=== PATIENT | male | born 1965 | race Caucasian/White ===

== ENCOUNTER 2017-12-17 02:18 | Outpatient (CLI) | payer MEDICAID, SELFPAY ==
[2017-12-17 11:08] LABS: Anion Gap 9.5 mmol/L (3-11); BUN 12 mg/dL (7-18); CO2 31.5 mmol/L (21.0-32.0); CREATININE 1.03 mg/dL (0.70-1.30); Calcium 9.2 mg/dL (8.5-10.1); Chloride 99 mmol/L (98-107); Glucose 183 mg/dL (70-100); Potassium 3.7 mmol/L (3.5-5.1); Sodium 140 mmol/L (136-145)
== END 2017-12-17 02:38 ==
PROVIDERS: PCP Family Medicine; Visit Provider Family Medicine
DX: I10 Essential (primary) hypertension (principal)
CPT/HCPCS: 36415; 80048

== ENCOUNTER 2018-12-14 02:23 | Outpatient (CLI) | payer MEDICAID, SELFPAY ==
[2018-12-14 12:48] LABS: Anion Gap 10.1 mmol/L (3-11); BUN 13 mg/dL (7-18); CO2 28.9 mmol/L (21.0-32.0); CREATININE 1.08 mg/dL (0.70-1.30); Calcium 9.2 mg/dL (8.5-10.1); Chloride 99 mmol/L (98-107); Glucose 118 mg/dL (70-100); Potassium 3.7 mmol/L (3.5-5.1); Sodium 138 mmol/L (136-145)
== END 2018-12-14 02:43 ==
PROVIDERS: PCP Family Medicine; Visit Provider Family Medicine
DX: I10 Essential (primary) hypertension (principal)
CPT/HCPCS: 36415; 80048

== ENCOUNTER 2020-01-30 02:12 | Outpatient (CLI) | payer MEDICAID, SELFPAY ==
[2020-01-30 12:50] LABS: Calculated LDL 204 mg/dL (<100); Cholesterol 305 mg/dL (<200); HDL Cholesterol 42 mg/dL (40-60); Potassium 4.4 mmol/L (3.5-5.1); Triglyceride 295 mg/dL (<150)
== END 2020-01-30 02:32 ==
PROVIDERS: PCP Nurse Practitioner; Visit Provider Nurse Practitioner
DX: E78.5 Hyperlipidemia, unspecified (principal); I10 Essential (primary) hypertension
CPT/HCPCS: 36415; 80061; 82565; 84132

== ENCOUNTER 2020-07-02 04:01 | Outpatient (CLI) | payer MEDICAID, SELFPAY ==
[2020-07-02 13:23] LABS: Calculated LDL 81 mg/dL (<100); Cholesterol 182 mg/dL (<200); HDL Cholesterol 57 mg/dL (40-60); Triglyceride 224 mg/dL (<150)
== END 2020-07-02 04:02 | disposition home or self-care (01) ==
LOC: LOS 04:01
PROVIDERS: PCP Nurse Practitioner; Visit Provider Nurse Practitioner
DX: E78.5 Hyperlipidemia, unspecified (principal)
CPT/HCPCS: 36415; 80061

== ENCOUNTER 2021-01-29 10:53 | Outpatient (CLI) | payer MEDICAID, SELFPAY ==
[2021-01-29 13:26] LABS: Cholesterol 267 mg/dL (<200); Triglyceride 309 mg/dL (<150)
[2021-01-29 13:27] LABS: Calculated LDL 154 mg/dL (<100); HDL Cholesterol 52 mg/dL (40-60); Potassium 4.1 mmol/L (3.5-5.1)
== END 2021-01-29 10:54 | disposition home or self-care (01) ==
LOC: LOS 10:53
PROVIDERS: PCP Nurse Practitioner; Visit Provider Nurse Practitioner
DX: I10 Essential (primary) hypertension (principal); E78.5 Hyperlipidemia, unspecified
CPT/HCPCS: 36415; 80061; 82565; 84132

== ENCOUNTER 2021-06-11 20:36 | Inpatient (IN) | payer MEDICAID, SELFPAY ==
[2021-06-11] VITALS (52 sets, daily range): BP systolic 68–178; BP diastolic 47–145; PULSE 84–124; RESP 8–22; TEMP 36.7; O2SAT 73–100
--- NOTE | 2021-06-11 20:20 | W.ED.GENAD ---
Discharge Plan Disposition Patient Disposition: [facility] INPATIENT Condition: Good Discharge Details Clinical Impression: Acute respiratory failure, Overdose, Altered mental status, Acute respiratory acidosis Admit Date/Time: 06/11/21 23:26 Admit Provider: Roe Zhou Attending Provider: Roe Zhou Primary Care Provider: Selma Zimmerman ED Provider: Liliana Arora Discharge Data Discharge Date/Time-TO BE ENTERED AT DEPARTURE: 06/12/21 00:36 Medical Decision Making 2024 -- 55-year-old male with a history of schizophrenia, anxiety, depression, hyperlipidemia, history of narcotic abuse presented per EMS for a suspected overdose. EMS reported that patient was noted to have oxygen saturation 30s on room air on scene and was given 2 doses of 0.5 Narcan intranasal and then became combative. Patient reported to punch, kick and bite EMS staff. EMS called med control for orders to give ketamine but we declined this be given due to concern for polymedication and potential for respiratory depression with unknown ingestion of substance. EMS involved [facility] on scene for safety and control or patient in the ambulance. Patient arrived to the ED being restrained by multiple EMS staff and [facility]. Patient placed in four-point soft restraints by staff including ENT and VSP due to continued risk of injury to himself and staff. Patient able to answer questions but is drowsy and combative. His blood pressure is hypertensive. Heart rate 120s. Oxygen saturation high 80s to low 90s on nonrebreather. Patient attempted to pull and rip off multiple nonrebreather's. Patient given 2 mg Ativan IM. Patient continued to be combative and pulling at lines and IV and attempting to bite staff while in 4 point restraints. 2200 -- Patient noted to have an ET CO2 50s-70s and bradypneic at times -- he was given multiple doses of 0.4 Narcan IV which he responded to as well. Patient would then ask for a roast beef sandwich and repeatedly states leave me alone, I want to sleep and I want to leave. He is drowsy but arousable and oriented x3. Patient then became more cooperative and no longer pulling at lines or mask and four-point restraints removed. Discussion with his girlfriend Raya over the phone states that he told her approximately 1 hour prior to arrival that he snorted something from a friend. She also reports he drank 3-4 beers. Girlfriend states she does not think she uses street drugs regularly. 2300 -- Suspect that this is an opiate overdose as he does respond immediately to Narcan. ABG notes a pH of 7.18, PCO2 of 65, PO2 of 127, bicarb of 22. Patient placed on BiPAP which he is tolerating well. He wakes up at times and asks for a roast beef sandwich and then becomes somnolent and bradypneic. His heart rate is 99, O2 sat 97 on 10/5 of BiPAP, end-tidal 40. Will admit for continued monitoring for suspected fentanyl overdose and likely plan for Narcan infusion. Case discussed with Dr. Zhou who accepts patient for admission to the ICU. Recommends a Narcan drip. 0 --patient remaining on BiPAP and tolerating this well. Heart rate 80s. Oxygen saturation mid 90s on BiPAP. He does respond when spoken to and gives a thumbs up. Labs reviewed. White blood cell count 21. Troponin negative. Alcohol level 96.5. Salicylate 3.1. Acetaminophen less than 2. Chest x-ray obtained and there are patchy infiltrates. Consider aspiration. Discussed with hospitalist -- will order a dose of Rocephin and Flagyl. Procalcitonin, lactate and blood cultures ordered. EKG not obtained here in the ED -- heart rate improved from 120s on arrival down to 80s prior to transfer to the ICU and appeared normal sinus on the monitor while here in the ED. Review of bedside cardiac US with Dr. Zhou noted normal wall motion and dynamics and no evidence of pericardial effusion. Medical Records Medical records reviewed: Yes I reviewed the patient's medical records. Imaging Data Radiologic Study: Radiologist's impression: XR Chest Exam date and time: 06/11/2021 22:17 Age: 55 years old Clinical indication: Patient HX: Hypoxia, R/O acute disease TECHNIQUE: Imaging protocol: XR of the chest. Views: 1 view. COMPARISON: MRI - L UPPER JOINT WO CONT 12/19/2016 16:22 FINDINGS: Lungs: Very low lung volumes with patchy interstitial opacities and superimposed linear densities mostly in the lung bases. Pleural spaces: No pleural effusion. No pneumothorax. Heart/Mediastinum: No cardiomegaly. Bones/joints: No acute fracture.? IMPRESSION: Low volume study with predominantly subsegmental atelectasis suspected in the lung bases.? Atypical infection is difficult to exclude however. Lab Data Lab results reviewed: Yes I reviewed the patient's lab results. Labs: 06/11/21 00:23 Blood Blood Culture - Pending 06/11/21 00:00 Blood Blood Culture - Pending Laboratory Tests Range/Units 06/11/21 06/11/21 06/11/21 20:50 20:50 20:50 WBC (4.4-10.8) 10^3/uL 21.35 H RBC (4.36-5.78) 10^6/uL 5.16 Hgb (13.5-17.5) g/dL 15.7 Hct (40.0-50.0) % 48.1 MCV (80-95) fL 93.2 MCH (27.0-33.0) pg 30.4 MCHC (32.0-36.0) % 32.6 RDW (11.8-14.1) % 13.0 Plt Count (130-400) 10^3/uL 387 MPV (8.0-11.0) fL 9.0 Immature Gran % 0.0 Neutrophils % 70.0 Lymphocytes % 24.0 Atypical Lymphs % 3 Monocytes % 2.0 Eosinophils % 1.0 Basophils % 0.0 Nucleated RBC % % 0 Absolute Neutrophils (1.2-6.7) 10^3/uL 14.95 H Absolute Lymphocytes (1.2-3.4) 10^3/uL 5.76 H Absolute Monocytes (0.1-0.8) 10^3/uL 0.43 Absolute Eosinophils (0.0-0.7) 10^3/uL 0.21 Absolute Basophils (0.0-0.2) 10^3/uL 0.00 RBC Morphology Normal ABG Sample Site ABG pH (7.35-7.45) ABG pCO2 (35-45) mmHg ABG pO2 (80-105) mmHg ABG HCO3 (22-26) mmol/L ABG Total CO2 (23-27) mmol/L ABG O2 Saturation (95-98) % ABG Base Excess (-2-3) mmol/L FiO2 % Sodium (136-145) mmol/L 138 Potassium (3.5-5.1) mmol/L 3.5 Chloride (98-107) mmol/L 97 L Carbon Dioxide (21.0-32.0) mmol/L 26.3 Anion Gap (3-11) mmol/L 14.7 H BUN (7-18) mg/dL 14 Creatinine (0.70-1.30) mg/dL 1.4 H Estimated GFR/1.73 m2 (mL/min/1.73m2) 52.81 Glucose (74-106) mg/dL 299 H Calcium (8.5-10.1) mg/dL 8.9 Magnesium (1.8-2.4) mg/dL 2.0 Total Bilirubin (0.2-1.0) mg/dL 0.2 AST (15-37) U/L 43 H ALT (16-63) U/L 55 Alkaline Phosphatase (46-116) U/L 62 Troponin I (<or=60) ng/L < 50 Total Protein (6.4-8.2) g/dL 8.0 Albumin (3.4-5.0) g/dL 4.0 Lipase (73-393) U/L 126 Salicylates (<2.8) mg/dL 3.1 Acetaminophen (10-30) ug/mL < 2 Ethyl Alcohol (<10) mg/dL 96.5 H Range/Units 06/11/21 20:51 WBC (4.4-10.8) 10^3/uL RBC (4.36-5.78) 10^6/uL Hgb (13.5-17.5) g/dL Hct (40.0-50.0) % MCV (80-95) fL MCH (27.0-33.0) pg MCHC (32.0-36.0) % RDW (11.8-14.1) % Plt Count (130-400) 10^3/uL MPV (8.0-11.0) fL Immature Gran % Neutrophils % Lymphocytes % Atypical Lymphs % Monocytes % Eosinophils % Basophils % Nucleated RBC % % Absolute Neutrophils (1.2-6.7) 10^3/uL Absolute Lymphocytes (1.2-3.4) 10^3/uL Absolute Monocytes (0.1-0.8) 10^3/uL Absolute Eosinophils (0.0-0.7) 10^3/uL Absolute Basophils (0.0-0.2) 10^3/uL RBC Morphology ABG Sample Site Right Radial ABG pH (7.35-7.45) 7.18 L* ABG pCO2 (35-45) mmHg 65 H* ABG pO2 (80-105) mmHg 127 H ABG HCO3 (22-26) mmol/L 24 ABG Total CO2 (23-27) mmol/L 22 L ABG O2 Saturation (95-98) % 98 ABG Base Excess (-2-3) mmol/L -4 L FiO2 % 100 Sodium (136-145) mmol/L Potassium (3.5-5.1) mmol/L Chloride (98-107) mmol/L Carbon Dioxide (21.0-32.0) mmol/L Anion Gap (3-11) mmol/L BUN (7-18) mg/dL Creatinine (0.70-1.30) mg/dL Estimated GFR/1.73 m2 (mL/min/1.73m2) Glucose (74-106) mg/dL Calcium (8.5-10.1) mg/dL Magnesium (1.8-2.4) mg/dL Total Bilirubin (0.2-1.0) mg/dL AST (15-37) U/L ALT (16-63) U/L Alkaline Phosphatase (46-116) U/L Troponin I (<or=60) ng/L Total Protein (6.4-8.2) g/dL Albumin (3.4-5.0) g/dL Lipase (73-393) U/L Salicylates (<2.8) mg/dL Acetaminophen (10-30) ug/mL Ethyl Alcohol (<10) mg/dL HPI General Date/Time Provider Initiated Documentation: 06/11/21 20:46. Limitations to Documentation: no limitations. Information obtained by: patient. HPI Narrative: Patient is a 55-year-old male with a history of schizophrenia, anxiety, depression, narcotic drug abuse who presents per EMS initially as a overdose, given Narcan and now combative. EMS reported that they called [facility] for involvement. EMS had called the ED requesting ketamine for combative patient but this was declined per med control for concern for respiratory depression in the setting of overdose post narcan. EMS reported that patient attempt to punch, kick and bite staff in the involved [facility].. Patient arrived to the ED with multiple EMT staff and [facility] holding him to be EMS stretcher. Patient's girlfriend Raya called to state that patient told her 1 hour prior to arrival that he snorted something he got from a friend . She also reported that he drank 3-4 beers. She states he does take his regular medications including clonazepam as prescribed and denies any known ingestion of additional doses or an overdose of his regular medications. She is not aware of him regularly abusing street drugs or prescription opiates. Review of records note that patient was seen last week at his PCP office and there was mention of a controlled substance contract. Pt is able to answer some questions and denies snorting or injecting any drugs. Related Data Home Medications Medication Instructions Recorded Confirmed calcium carbonate 300 mg (750 mg) 302 tab PO PRN PRN 05/14/17 06/04/21 chewable tablet (Tums E-X) amlodipine 5 mg tablet 5 mg PO DAILY #90 tab 01/29/21 06/04/21 atorvastatin 20 mg tablet 20 mg PO QPM #90 tab 01/29/21 06/04/21 chlorthalidone 25 mg tablet 25 mg PO DAILY #90 tab-cap 01/29/21 06/04/21 diphenhydramine HCl 25 mg capsule 50 mg PO QHS cap 01/29/21 06/04/21 (NightTime Sleep Aid (diphenhydramine)) lisinopril 40 mg tablet 40 mg PO DAILY #90 tab 01/29/21 06/04/21 sertraline 50 mg tablet 50 mg PO DAILY #90 tab 01/29/21 06/04/21 clonazepam 1 mg tablet See Rx Instructions PO .COMPLEX 05/24/21 06/04/21 #30 tab blood sugar diagnostic (FreeStyle #50 ea 06/12/21 Test) blood-glucose meter (FreeStyle #1 ea 06/12/21 System Kit) lancets 28 gauge #100 ea 06/12/21 levofloxacin 750 mg tablet 750 mg PO HS #4 tab 06/12/21 metformin 500 mg tablet 500 mg PO DAILY #30 tab 06/12/21 nicotine 21 mg/24 hr daily 21 mg TRANSDERMAL DAILY PRN PRN 06/12/21 transdermal patch #28 ea Previous Rx's Medication Instructions Recorded amlodipine 5 mg tablet 5 mg PO DAILY #90 tab 01/29/21 atorvastatin 20 mg tablet 20 mg PO QPM #90 tab 01/29/21 chlorthalidone 25 mg tablet 25 mg PO DAILY #90 tab-cap 01/29/21 lisinopril 40 mg tablet 40 mg PO DAILY #90 tab 01/29/21 sertraline 50 mg tablet 50 mg PO DAILY #90 tab 01/29/21 clonazepam 1 mg tablet See Rx Instructions PO .COMPLEX 05/24/21 #30 tab blood sugar diagnostic (FreeStyle #50 ea 06/12/21 Test) blood-glucose meter (FreeStyle #1 ea 06/12/21 System Kit) lancets 28 gauge #100 ea 06/12/21 levofloxacin 750 mg tablet 750 mg PO HS #4 tab 06/12/21 metformin 500 mg tablet 500 mg PO DAILY #30 tab 06/12/21 nicotine 21 mg/24 hr daily 21 mg TRANSDERMAL DAILY PRN PRN 06/12/21 transdermal patch #28 ea Allergies Allergy/AdvReac Type Severity Reaction Status Date / Time Penicillins Allergy Unknown As a child Unverified 06/04/21 14:38 General Stated Complaint: OD/Poison SARAH: 2 Review of Systems Unobtainable due to mental status Constitutional Constitutional: Denies chills, Denies excessive sweating, Denies fatigue, Denies fever(s), Denies weakness and Denies weight loss Eyes Eyes: Reports system reviewed and no additional complaints, except as documented and Denies blurry vision ENT Ears, Nose, Mouth, and Throat: Denies vertigo, Denies dizziness, Denies otalgia, Denies nasal congestion, Denies sore throat and Denies throat swelling Cardiovascular Cardiovascular: Denies chest pain, Denies syncope, Denies rapid heart rate and Denies dyspnea Respiratory Respiratory: Denies chest congestion, Denies cough, Denies pain on inspiration and Denies dyspnea Gastrointestinal Gastrointestinal: Denies abdominal pain, Denies diarrhea and Denies vomiting Genitourinary Genitourinary: Denies hematuria, Denies dysuria and Denies flank pain Musculoskeletal Musculoskeletal: Denies back pain and Denies joint swelling Integumentary/Breasts Skin/Breast: Denies lesions and Denies rash Neurologic Neurologic: Denies behavioral changes, Denies confusion, Denies vertigo, Denies dizziness, Denies syncope, Denies localized weakness and Denies weakness Psychiatric Psychiatric: Denies behavioral changes, Denies confusion and Denies depression Endocrine Endocrine: Denies excessive sweating and Denies fatigue Hematologic/Lymphatic Hematologic/Lymphatic: Denies easy bruising and Denies lymphadenopathy Allergic/Immunologic Allergic/Immunologic: Denies throat swelling PFSH All Active Problems (Updated 06/13/21 @ 00:05 by AMERICO ENGEL) Newly diagnosed diabetes (Acute) Aspiration pneumonia (Acute) Smoker (Chronic) 1 PPD on & off > 30 years Primary osteoarthritis of right shoulder (Chronic 11/22/15) Surg with Dr. 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 Brother Essential hypertension Son No problems noted. Son No problems noted. Social History Smoking/Tobacco Use Status: Current every day Tobacco Type: cigarettes Quit status: has quit before Second Hand Exposure: Yes Smoking risk assessment performed?: Yes Alcohol Intake: current Alcohol Intake frequency: a few times a month Drug use: Never Substance use type: does not use Caregiver/Support person: No Household members: significant other Housing: apartment Communication Needs: None Do you need help understanding health information?: Rarely current occupation: [employer] Pets and animals: No Sexually active: Yes Do you think of yourself as: straight/heterosexual Current gender identity: male What is your relationship status?: living with partner How often do you talk on the phone with friends or family?: twice per week How often do you get together with friends or relatives?: twice per week Do you belong to any clubs or organized social groups?: no Panel score (0-1 are the most socially isolated patients): 2 What type of physical activity do you participate in: bicycling Duration: < 15 minutes/day Frequency: 1-2 times per week Kimberly/Synagogue: No preference Special kimberly needs: No Seatbelt use: sometimes Helmet use: Yes Helmet use: sometimes Drive intox or ride w/intox professional driver: No Do you feel safe in your relationship?: Yes Exam Const General: disheveled (combative and thrashing around stretcher. ) HENMT Head: normal to inspection Ears: hearing grossly normal bilaterally and external ears normal General nose exam: external nose normal Face and sinus: normal facial exam Mouth: oral mucosae normal and tongue normal Teeth and gingiva: poor dentition Eyes General: appearance normal, both eyes and all related structures Eyelids: eyelids normal Pupils: pinpoint bilaterally EOM: EOM intact bilaterally Neck Neck: normal visual inspection Lymphatic: no lymphadenopathy noted Chest Chest: normal inspection of the chest Resp Effort & Inspection: normal respiratory effort and able to speak in complete sentences Auscultation: clear to auscultation bilaterally Cardio Rate: regular rate Rhythm: regular rhythm GI Inspection: normal to inspection Palpation: soft, not firm, no guarding, no hepatosplenomegaly, no masses and nontender Auscultation: hypoactive bowel sounds Male General Exam: Yes normal external exam Back/Spine/Pelvis Thoracic/Lumbar Spine: thoracic and lumbar spine normal to inspection Skin General skin exam: no rashes or lesions noted Neuro General: moves all extremities, no meningeal signs, no focal motor deficits and other (drowsy but arousable to voice and sternal rub at times) Cognition: normal cognition Speech: speech normal Motor: muscle tone normal throughout Sensory Exam: no sensory deficits noted Extrem General: normal to inspection and full ROM Psych Appearance: grossly normal Mental Status: mental status grossly normal Speech and Movement: speech and movement normal Affect: normal affect Thought Process: normal Critical Care Time Critical Care Time Critical Care Time: Yes Total Critical Care Time: 90 Attestation: I spent 90 minutes of critical care time with this patient. This does not include time spent on separately reported billable procedures.
[2021-06-11] MEDS: LORazepam 2 MG/ML VIAL IM (20:37)
[2021-06-11] MEDS: Haloperidol 5 MG/ML VIAL IM (20:50)
[2021-06-11] MEDS: Naloxone 0.4 MG/ML VIAL ×4 (20:50→21:32)
[2021-06-11] MEDS: Normal Saline 1,000 ML 1000 ML IV ×3 (21:00→23:10)
--- NOTE | 2021-06-11 21:00 | DI.RAD_ITS ---
Exam(s) XR PORTABLE CHEST AP EXAM: XR PORTABLE CHEST AP CLINICAL HISTORY: hypoxia, r/o acute disease. TECHNIQUE: 2D digital imaging was performed. COMPARISON: No exams were available for comparison FINDINGS: Single AP portable view. Heart size is upper normal. The mediastinum is not widened. There is infiltrate in both lung bases. Also atelectasis. No pleural effusions. No pneumothorax. IMPRESSION: Bilateral lung base infiltrates. No obvious pleural effusions evident on this single portable view.R ecommend nonportable PA and lateral views when clinically possible. DATA REPOSITORY: RADIATION DOSE DELIVERED: All CT scans at this facility use at least one of these dose optimization techniques: automated exposure control; mA and/or kV adjustment per patient size (includes targeted e xams where dose is matched to clinical indication); or iterative reconstruction.
[2021-06-11 21:09] LABS: Abs Immature Grans 0.86 10^3/uL (0.0-0.06); HCT 48.1 % (40.0-50.0); HGB 15.7 g/dL (13.5-17.5); MCH 30.4 pg (27.0-33.0); MCHC 32.6 % (32.0-36.0); MCV 93.2 fL (80-95); Nucleated RBC 0 %; Platelet Count 387 10^3/uL (130-400); RBC 5.16 10^6/uL (4.36-5.78); RDW-SD 44.5 fL; WBC 21.35 10^3/uL (4.4-10.8)
[2021-06-11 21:18] LABS: Salicylate 3.1 mg/dL (<2.8)
[2021-06-11 21:22] LABS: ALT 55 U/L (16-63); AST 43 U/L (15-37); Absolute Eosinophil Count 0.21 10^3/uL (0.0-0.7); Absolute Monocyte Count 0.43 10^3/uL (0.1-0.8); Absolute Neutrophil Count 14.95 10^3/uL (1.2-6.7); Acetaminophen < 2 ug/mL (10-30); Alkaline Phosphatase 62 U/L (46-116); Anion Gap 14.7 mmol/L (3-11); BUN 14 mg/dL (7-18); Bilirubin, Total 0.2 mg/dL (0.2-1.0); CO2 26.3 mmol/L (21.0-32.0); CREATININE 1.4 mg/dL (0.70-1.30); Calcium 8.9 mg/dL (8.5-10.1); Chloride 97 mmol/L (98-107); Diff Comment Manual Differential; ETHANOL BLOOD 96.5 mg/dL (<10); Estimated GFR 52.81 (mL/min/1.73m2); Glucose 299 mg/dL (74-106); Lipase 126 U/L (73-393); Potassium 3.5 mmol/L (3.5-5.1); Sodium 138 mmol/L (136-145); Troponin I < 50 ng/L (<or=60)
[2021-06-11 21:23] LABS: Absolute Lymphocyte Count 5.76 10^3/uL (1.2-3.4); Atypical Lymphocytes % 3; RBC Morphology Normal
[2021-06-11 21:46] LABS: BE -4 mmol/L (-2-3); HCO3 24 mmol/L (22-26); pO2 127 mmHg (80-105); sO2 98 % (95-98); tCO2 22 mmol/L (23-27)
[2021-06-11 21:50] LABS: Site Right Radial; pH 7.18 (7.35-7.45)
[2021-06-11 21:51] LABS: FIO2 100 %
--- NOTE | 2021-06-11 22:58 | RESPIRATORY ---
Patient placed on Bipap 10/5 40% , Large mask
[2021-06-11 23:40] LABS: Source Nasal/Nares
--- NOTE | 2021-06-11 23:46 | HPE_ITS ---
Date of service: 06/11/21 Time of Service: 23:46 Assessment and Plan Assessment and plan (1) Overdose: Status: Acute Assessment and plan: Patient allegedly snorted a substance about one hour prior to his episode of altered mental status and LOC associated w/ hypoxic and hypercarbic respiratory failure. Because he responds to intermittent boluses of narcan and awakend enough to respond to commands and to make requests for a roast beef sandwich, it is presumed that he inhaled some sort of long acting opiate, possibly fentanyl or sufentanil. Patient was not intubated in the ER and at this point seems to be responsive to BIPAP and to continuous infusion of narcan. If he becomes refractory to the narcan then he will need to be intubated. Patient's care discussed w/ Dr. Arora and nursing. 60 minutes CC time spent examining patient, discussion w/ staff, placeing orders and reviewing data. Sepa rate from this POCUS lung and cardiac exam was performed. Diffuse B line bilaterally at the bases to mid lung dick and normal LV and RV function was seen. (2) Altered mental status: Status: Acute Assessment and plan: as above (3) Acute respiratory failure with hypoxia and hypercapnia: Status: Acute Assessment and plan: supportive care w/ BIPAP. His ETCO2 is down to 31 and his SPO2 is in the low to mid 90's. Will treat for aspiration pneumonia w/ Rocephin and Levaquin. (4) Acute respiratory acidosis: Status: Acute Assessment and plan: supportive care w/ BIPAP (5) Aspiration pneumonia: Status: Acute Assessment and plan: antibiotics as above (6) Smoker: Status: Chronic Assessment and plan: nicotine patch (7) Schizophrenia in full remission with history of multiple episodes: Status: Chronic (8) Essential hypertension: Status: Chronic Assessment and plan: holding any antihypertensives as his bp has been low. continue iv fluids, if his bp drops again then will need vasopressor support (9) Depressive disorder: Status: Chronic Assessment and plan: unclear as to whether or not he is currently taking his antidepressants (10) Hyperlipidemia: Status: Chronic (11) DVT prophylaxis: Status: Acute Assessment and plan: lovenox 40 mg SC daily (12) At risk for stress ulcer: Status: Acute Assessment and plan: protonix 40 mg iv daily History of Present Illness History of Present Illness Chief Complaint: suspected narcotic overdose, hypoxemia Narrative: 55 yr old male w/ PMH schizophrenia, depression, HTN, HLD for whom EMS was called to evaluate. Call made by his girlfriend when patient was found to be unresponsive about one hour after reportedly snorting some substance given to him by a friend. Upon EMS arrival he was found to be hypoxemic SPO2 in the 30's% and he was given 2 doses of Narcan intranasal when he became combative reportedly punching and kicking and biting EMS staff. EMS requested orders for ketamine from [facility] but was denied this d/t unknown nature of his overdose and possible polypharmacy use and potential for further respiratory depression. [facility] was called to the scene and patient was transported in restraints. ON arrival he was drowsy but combative and was hypertensive (178/127) and tachycardic (HR 120's) and SPO2 in the high 80's to 90's on NRB mask. Patient had to be medicated w/ Ativan 2 mg and Haldol and put in 4 point restraints. He required multiple doses of 0.4 mg Narcan d/t bradypnea and hypoxemia and elevated ET CO2 in the 50's to 70's. He later developed hypotension w/ SBP in the 70's and diastolic in the 40's and required multiple iv boluses of saline.At the time of my evaluation in the ED his BP was in the high 90's to low 100's and his HR was in the 90's SR. Patient reportedly had 3 or 4 beers prior to snorting his illicit substance and his FLETCHER is 96.5. His salicylate is 3.1 and APAP is <2. CBC demonstratges WBC 21,300, no anemia. CMP glucose 299, AG 14.7, BUN 14, creatinine 1.4, AST 43, troponin <50 x 2 sets. COVID-19 PCR negative. Review of Systems Unobtainable due to mental condition [facility] All Active Problems (Updated 06/12/21 @ 01:34 by Roe Zhou) At risk for stress ulcer (Acute) DVT prophylaxis (Acute) Aspiration pneumonia (Acute) Acute respiratory failure with hypoxia and hypercapnia (Acute) Acute respiratory failure (Acute) Overdose (Acute) Altered mental status (Acute) Acute respiratory acidosis (Acute) Smoker (Chronic) 1 PPD on & off > 30 years Schizophrenia in full remission with history of multiple episodes (Chronic 02/04/16) Primary osteoarthritis of right shoulder (Chronic 11/22/15) Surg with Dr. 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 Medical History Chronic pain syndrome Partial tear of left rotator cuff (12/24/16) 2017 (approx per pt) repaired Superior glenoid labrum lesion of left shoulder, subsequent encounter (06/01/17) 2018 repair Family History Father , AGE 67 Diabetes Alcohol abuse Essential hypertension Depression Hypercholesteremia Schizophrenia Skin cancer Mother Depression Sister No problems noted. Brother Essential hypertension Son No problems noted. Son No problems noted. Social History Smoking/Tobacco Use Status: Current every day Tobacco Type: cigarettes Quit status: has quit before Second Hand Exposure: Yes Smoking risk assessment performed?: Yes Alcohol Intake: current Alcohol Intake frequency: a few times a month Drug use: Never Substance use type: does not use Caregiver/Support person: No Household members: significant other Housing: apartment Communication Needs: None Do you need help understanding health information?: Rarely current occupation: [employer] Pets and animals: No Sexually active: Yes Do you think of yourself as: straight/heterosexual Current gender identity: male What is your relationship status?: living with partner How often do you talk on the phone with friends or family?: twice per week How often do you get together with friends or relatives?: twice per week Do you belong to any clubs or organized social groups?: no Panel score (0-1 are the most socially isolated patients): 2 What type of physical activity do you participate in: bicycling Duration: < 15 minutes/day Frequency: 1-2 times per week Kimberly/Taoist: No preference Special kimberly needs: No Seatbelt use: sometimes Helmet use: Yes Helmet use: sometimes Drive intox or ride w/intox driver license examiner: No Do you feel safe in your relationship?: Yes Meds Allergies and Home Medications Allergies Allergy/AdvReac Type Severity Reaction Status Date / Time Penicillins Allergy Unknown As a child Unverified 06/04/21 14:38 Home Medications Medication Instructions Recorded Confirmed Type calcium carbonate 300 mg (750 mg) 302 tab PO PRN PRN 05/14/17 06/04/21 History chewable tablet (Tums E-X) amlodipine 5 mg tablet 5 mg PO DAILY #90 tab 01/29/21 06/04/21 Rx atorvastatin 20 mg tablet 20 mg PO QPM #90 tab 01/29/21 06/04/21 Rx chlorthalidone 25 mg tablet 25 mg PO DAILY #90 tab-cap 01/29/21 06/04/21 Rx diphenhydramine HCl 25 mg capsule 50 mg PO QHS cap 01/29/21 06/04/21 History (NightTime Sleep Aid (diphenhydramine)) lisinopril 40 mg tablet 40 mg PO DAILY #90 tab 01/29/21 06/04/21 Rx sertraline 50 mg tablet 50 mg PO DAILY #90 tab 01/29/21 06/04/21 Rx clonazepam 1 mg tablet See Rx Instructions PO .COMPLEX 05/24/21 06/04/21 Rx #30 tab Results Labs Result diagrams: 06/11/21 20:50 06/11/21 23:56 Labs: Laboratory Results - last 24 hr 06/11/21 06/11/21 06/11/21 20:50 20:50 20:50 WBC 21.35 H RBC 5.16 Hgb 15.7 Hct 48.1 MCV 93.2 MCH 30.4 MCHC 32.6 RDW 13.0 Plt Count 387 MPV 9.0 Immature Gran % 0.0 Neutrophils % 70.0 Lymphocytes % 24.0 Atypical Lymphs % 3 Monocytes % 2.0 Eosinophils % 1.0 Basophils % 0.0 Nucleated RBC % 0 Absolute Neutrophils 14.95 H Absolute Lymphocytes 5.76 H Absolute Monocytes 0.43 Absolute Eosinophils 0.21 Absolute Basophils 0.00 RBC Morphology Normal ABG Sample Site ABG pH ABG pCO2 ABG pO2 ABG HCO3 ABG Total CO2 ABG O2 Saturation ABG Base Excess FiO2 Sodium 138 Potassium 3.5 Chloride 97 L Carbon Dioxide 26.3 Anion Gap 14.7 H BUN 14 Creatinine 1.4 H Estimated GFR/1.73 m2 52.81 Glucose 299 H Calcium 8.9 Magnesium 2.0 Total Bilirubin 0.2 AST 43 H ALT 55 Alkaline Phosphatase 62 Troponin I < 50 Total Protein 8.0 Albumin 4.0 Lipase 126 Salicylates 3.1 Acetaminophen < 2 Ethyl Alcohol 96.5 H COVID-19 Source 06/11/21 06/11/21 20:51 23:36 WBC RBC Hgb Hct MCV MCH MCHC RDW Plt Count MPV Immature Gran % Neutrophils % Lymphocytes % Atypical Lymphs % Monocytes % Eosinophils % Basophils % Nucleated RBC % Absolute Neutrophils Absolute Lymphocytes Absolute Monocytes Absolute Eosinophils Absolute Basophils RBC Morphology ABG Sample Site Right Radial ABG pH 7.18 L* ABG pCO2 65 H* ABG pO2 127 H ABG HCO3 24 ABG Total CO2 22 L ABG O2 Saturation 98 ABG Base Excess -4 L FiO2 100 Sodium Potassium Chloride Carbon Dioxide Anion Gap BUN Creatinine Estimated GFR/1.73 m2 Glucose Calcium Magnesium Total Bilirubin AST ALT Alkaline Phosphatase Troponin I Total Protein Albumin Lipase Salicylates Acetaminophen Ethyl Alcohol COVID-19 Source Nasal/Nares Last Vital Signs Temp 36.7 C 06/11/21 22:20 Pulse 109 H 06/11/21 22:20 Resp 19 06/11/21 22:20 BP 83/49 L 06/11/21 22:20 Pulse Ox 95 06/11/21 22:20
[2021-06-12] VITALS (113 sets, daily range): BP systolic 86–140; BP diastolic 34–89; PULSE 78–109; RESP 5–19; TEMP 36.1–36.7; O2SAT 86–99
[2021-06-12 00:02] LABS: BE (Venous) -3 mmol/L (-2-3); HCO3 (Venous) 25 mmol/L (23-28); O2 Sat (Venous) 83 %; TCO2 (Venous) 23 mmol/L (24-29); pH (Venous) 7.22 (7.31-7.41); pO2 (Venous) 52 mmHg
[2021-06-12 00:04] LABS: pCO2 (Venous) 62 mmHg (41-51)
[2021-06-12 00:05] LABS: Lactate 3.8 mmol/L (0.6-1.4)
--- NOTE | 2021-06-12 00:07 | DI.VRAD_ITS ---
PROCEDURE INFORMATION: Exam: XR Chest Exam date and time: 06/11/2021 22:17 Age: 55 years old Clinical indication: Patient HX: Hypoxia, R/O acute disease TECHNIQUE: Imaging protocol: XR of the chest. Views: 1 view. COMPARISON: MRI - L UPPER JOINT WO CONT 12/19/2016 16:22 FINDINGS: Lungs: Very low lung volumes with patchy interstitial opacities and superimposed linear densities mostly in the lung bases. Pleural spaces: No pleural effusion. No pneumothorax. Heart/Mediastinum: No cardiomegaly. Bones/joints: No acute fracture. IMPRESSION: Low volume study with predominantly subsegmental atelectasis suspected in the lung bases. Atypical infection is difficult to exclude however. Dictated and Authenticated by: Zayra Mueller MD. Ordering:ALEXIA Ford MD
[2021-06-12 00:13] LABS: Anion Gap 9.2 mmol/L (3-11); BUN 14 mg/dL (7-18); CO2 26.8 mmol/L (21.0-32.0); CREATININE 1.2 mg/dL (0.70-1.30); Calcium 7.6 mg/dL (8.5-10.1); Chloride 104 mmol/L (98-107); Glucose 143 mg/dL (74-106); Sodium 140 mmol/L (136-145)
[2021-06-12 00:16] LABS: COVID-19 PCR Negative (Negative)
[2021-06-12 00:23] LABS: Troponin I < 50 ng/L (<or=60)
[2021-06-12] MEDS: metroNIDAZOLE 500 MG/100 ML BAG 100 MG IVPB (00:26)
[2021-06-12] MEDS: cefTRIAXone 1 GM/50 ML BAG IVPB (00:27)
--- NOTE | 2021-06-12 01:06 | NUR.NOTE ---
Nursing Note: Patient given multiple doses of naloxone. First dose of 0.4mg at 20:50 in Right AC. Second dose of 0.4mg at 21:24 in Right AC. Third dose of 0.4mg at 21:28 in Right AC. Fourth dose of 0.4mg at 21:32 in Right AC. Fifth dose of 0.4mg at 21:44 in Right AC. Sixth dose of 1mg at 22:00 in Right AC. Seventh dose of 1mg at 22:15 in Right AC. Eighth dose of 1mg at 22:42 in Right AC. All doses documented in MAR.
[2021-06-12 01:31] LABS: Procalcitonin 0.2 ng/mL
[2021-06-12] MEDS: levoFLOXacin 750 MG/150 ML BAG 100 MG IVPB (02:47)
[2021-06-12] MEDS: Lactated Ringers 1,000 ML 150 ML IV (02:50)
[2021-06-12 06:47] LABS: BE (Venous) 2 mmol/L (-2-3); HCO3 (Venous) 28 mmol/L (23-28); O2 Sat (Venous) 88 %; TCO2 (Venous) 25 mmol/L (24-29); pCO2 (Venous) 53 mmHg (41-51); pH (Venous) 7.33 (7.31-7.41); pO2 (Venous) 52 mmHg
[2021-06-12 06:48] LABS: Abs Immature Grans 0.16 10^3/uL (0.0-0.06); Absolute Lymphocyte Count 1.43 10^3/uL (1.2-3.4); Absolute Monocyte Count 0.76 10^3/uL (0.1-0.8); Basophils % 0.1; Eosinophils % 0.1; HCT 40.3 % (40.0-50.0); HGB 12.9 g/dL (13.5-17.5); Immature Grans % 1.1; Lymphocytes % 9.4; MCH 30.1 pg (27.0-33.0); MCV 94.2 fL (80-95); MPV 8.7 fL (8.0-11.0); Neutrophils % 84.3; Nucleated RBC 0 %; Platelet Count 205 10^3/uL (130-400); RBC 4.28 10^6/uL (4.36-5.78); RDW 13.1 % (11.8-14.1); RDW-SD 44.5 fL; WBC 15.21 10^3/uL (4.4-10.8)
[2021-06-12 06:50] LABS: Lactate 2.2 mmol/L (0.6-1.4)
[2021-06-12 06:51] LABS: Absolute Basophil Count 0.02 10^3/uL (0.0-0.2); Absolute Eosinophil Count 0.02 10^3/uL (0.0-0.7); Absolute Neutrophil Count 12.82 10^3/uL (1.2-6.7)
[2021-06-12 07:03] LABS: Bilirubin Negative (Negative); Blood Negative (Negative); Clarity Clear (Clear); Glucose Negative (Negative); Ketones Negative (Negative); Leukocyte Esterase Negative (Negative); Nitrite Negative (Negative); Urobilinogen 0.2 EU/dL (Up TO 0.2); pH 5.5 (5-8)
[2021-06-12 07:04] LABS: C-Reactive Protein 0.83 mg/dL (0.0-0.3)
[2021-06-12 07:06] LABS: ALT 42 U/L (16-63); AST 28 U/L (15-37); Albumin 3.2 g/dL (3.4-5.0); Alkaline Phosphatase 43 U/L (46-116); BUN 14 mg/dL (7-18); Bilirubin, Total 0.2 mg/dL (0.2-1.0); CREATININE 1.2 mg/dL (0.70-1.30); Calcium 7.6 mg/dL (8.5-10.1); Chloride 103 mmol/L (98-107); Glucose 119 mg/dL (74-106); Potassium 4.1 mmol/L (3.5-5.1); Sodium 141 mmol/L (136-145); Total Protein 6.4 g/dL (6.4-8.2)
[2021-06-12 07:11] LABS: Hemoglobin A1C 6.7 % (<5.7)
[2021-06-12 07:41] LABS: Lab Add On Test DONE
[2021-06-12 07:53] LABS: Creatine Kinase 393 U/L (39-308)
--- NOTE | 2021-06-12 09:34 | DM INPTCON_ITS ---
Date of service: 06/12/21 Time of Service: 09:34 Diabetes Inpatient Consult Reason for Visit: New diagnosis of diabetes. Diabetes education DESCRIPTION/ASSESSMENT: Met with Mr. Cabral in his room in the ICU to begin diabetes education. Mr. Cabral has a new diagnosis of diabetes with an A1C of 6.7. He states he knew he had prediabetes a year ago so he reports he is not surprised although it is still a lot to process. He verbalizes a basic knowledge of how he will have to change his eating pattern as well as his physical activity. Mr. Cabral states that his belief is that eating healthfully is expensive and for that reason he eats processed foods. He also was told that the sugar in soda is better for him than artificial sweeteners so he drinks regular sodas. INTERVENTION: Supported Mr. aCbral comment that a new dx of DM is a lot to take in. For that reason, I asked him if he could eliminate or reduce his intake of sugary drinks for the next week. I also asked him if could make half of his plate/meal non- starchy vegetables (fresh, frozen, or canned). He stated that he will carry out these action plans. Provided written materials on planning a healthy meal with diabetes, checking blood sugars, and what is diabetes. He stated that he loves to learn by reading. PLAN: Mr. Cabral will return as an outpatient to see me on ThursdayJune 19 for continued diabetes education. Please write an rx for a glucometer, strips, and lancets if the hospitalist would like me to teach him how to check his blood sugars next week. Thank you for the consult. Time Spent in Nutritional Counseling and Treatment: 15 minutes
[2021-06-12 09:51] LABS: *AMPHETAMINES SCREEN URINE Negative (Negative); *BARBITURATES SCREEN URINE Negative (Negative); *BENZODIAZEPINES SCREEN URINE Negative (Negative); Cannabinoids THC Negative (Negative); Cocaine Screen,Urine Negative (Negative); METHADONE URINE SCREEN Negative (Negative); OPIATES URINE SCREEN Negative (Negative)
[2021-06-12 09:53] LABS: Tricyclic Antidepressants Negative (Negative)
--- NOTE | 2021-06-12 10:08 | INITIAL_ITS ---
- If Service Date Differs Date of service: 06/12/21 Time of Service: 10:08 Care Management Initial Assess REASON FOR HOSPITALIZATION:: overdose PAST MEDICAL HISTORY/PAST SURGICAL HISTORY:: All Active Problems (Updated 06/12/21 @ 01:34 by Roe Zhou). At risk for stress ulcer (Acute). DVT prophylaxis (Acute). Aspiration pneumonia (Acute). Acute respiratory failure with hypoxia and hypercapnia (Acute). Acute respiratory failure (Acute). Overdose (Acute). Altered mental status (Acute). Acute respiratory acidosis (Acute). Smoker (Chronic). 1 PPD on & off > 30 years. Schizophrenia in full remission with history of multiple episodes (Chronic 04/26/15). Primary osteoarthritis of right shoulder (Chronic 11/22/15). Surg with Dr. Shafer. Primary osteoarthritis of left shoulder (Chronic 06/01/17). Surg Dr Shafer. Osteoarthritis (Chronic). Neck pain (Chronic). DJD per Xray 05/28; foraminal norrowing C6-7. Low back pain (Chronic). disc space narrowing L1-3, L4-S1. Hyperlipidemia (Chronic). Essential hypertension (Chronic 02/09/13). Depressive disorder (Chronic). 05/2021-patient taking clonazepam, declined to give urine sample, declined to sign contract, clonazepam tapered and discontinued. Medical History . Chronic pain syndrome. Partial tear of left rotator cuff (12/24/16). 2018 (approx per pt) repaired. Superior glenoid labrum lesion of left shoulder, subsequent encounter (06/01/17). 2018 repair PREVIOUS FUNCTIONAL STATUS/SOCIAL/FAMILY SUPPORTS:: Kevin lives in an apartment in [facility] with his girlfriend Raya Lopez. ADVANCE DIRECTIVES:: on file Leobardo GARCIA Has patient been provided with info about the portal/API?: Yes Did the patient sign up for the portal?: No CODE STATUS:: Full Code INSURANCE COVERAGE / FINANCIAL ISSUES:: Medicaid PRIMARY CARE PHYSICIAN:: Selma Zimmerman POTENTIAL DISCHARGE NEEDS:: follow up with PCP and plan of care PATIENT/FAMILY EDUCATION NEEDS:: Review of discharge instructions, limitations, medications, folllow up plan, Ask Me Three TRANSPORTATION:: via private vehicle with friends PLAN:: Kevin will be discharged home with no new services. He will follow up with his PCP and plan of care and transport with family.
[2021-06-12] MEDS: metFORMIN 500 MG TAB PO (10:19)
--- NOTE | 2021-06-12 10:57 | DSE_ITS ---
Date of service: 06/12/21 Time of Service: 10:57 DS: Diagnosis Discharge Diagnosis (1) Overdose: Status: Acute (2) Altered mental status: Status: Resolved (3) Acute respiratory failure with hypoxia and hypercapnia: Status: Resolved (4) Acute respiratory acidosis: Status: Resolved (5) Aspiration pneumonia: Status: Acute (6) Smoker: Status: Chronic (7) Schizophrenia in full remission with history of multiple episodes: Status: Chronic (8) Essential hypertension: Status: Chronic (9) Depressive disorder: Status: Chronic (10) Hyperlipidemia: Status: Chronic Discharge Plan Disposition Patient Disposition: HOME Condition: Good Discharge Details Reason For Visit: Drug Overdose Admit Date/Time: 06/11/21 23:26 Admit Provider: Roe Zhou Attending Provider: Roe Zhou Primary Care Provider: [facility] Course Hospital Course: Mr Cabral is a 55 year old male with PMHx of hypertension, hyperlipidemia, low back pain, depressive disorder, opioid abuse reportedly in remission, who was a patient in [facility] ICU under the hospitalist service from 06/11/21 until 06/12/21 for an episode of altered mental status/encephalopathy accompanied by acute hypoxic hypercapnic respiratory failure with evidence of respiratory acidosis after being found unresponsive by a significant other. He was drinking alcohol and smoking marijuana prior to this. His EtOH level was 96.5 mg/dL. The patient did improve with intermittent boluses of narcan but because he was requiring several of them was transitioned to narcan drip and was placed on BiPAP. He is suspected to have aspirated during this event and was initiated on treatment with ceftriaxone and levofloxacin for aspiration pneumonia. By the morning of 06/12/21, the patient is A&Ox3 and is completely back to baseline. His UDS is negative. He is not interested in any sobriety resources at this time, and there is no evidence or suspicion for intentional misuse or overdose. It is felt that, most likely, his marijuana was laced with an opioid substance not picked up by UDS. He is discouraged from using this again. He is stable for discharge home today. He will need to complete 4 more days of levofloxacin. Incidentally, on this admission the patient was found to have a new diagnosis of diabetes with A1C of 6.7. For this, he underwent diabetes education and was initiated on metformin. He is being discharged home today with a script for meter, strips, and lancets. He is instructed to follow up with diabetes education. Care for patient as well as completion of his discharge summary on day of discharge took 45 minutes. Home Meds and New Rx's Prescriptions: New levofloxacin 750 mg Tablet 750 mg PO HS Qty: 4 0RF metformin 500 mg Tablet 500 mg PO DAILY Qty: 30 0RF nicotine 21 mg/24 hr Patch 24 Hour 21 mg transdermal DAILY PRN PRNQty: 28 0RF (DME) FreeStyle Test Strip See Rx Instructions .Route Qty: 50 0RF Rx Instructions: fasting blood sugar checks each morning (DME) blood-glucose meter [FreeStyle System Kit] Kit See Rx Instructions .Route Qty: 1 0RF Rx Instructions: As directed (DME) lancets 28 gauge misc See Rx Instructions .Route Qty: 100 0RF Rx Instructions: For fasting blood sugar checks each morning Continued diphenhydramine HCl [NightTime Sleep Aid (diphen)] 25 mg capsule 50 mg PO QHS 0RF amlodipine 5 mg tablet 5 mg PO DAILY Qty: 90 4RF atorvastatin 20 mg tablet 20 mg PO QPM Qty: 90 4RF chlorthalidone 25 mg tablet 25 mg PO DAILY Qty: 90 4RF sertraline 50 mg tablet 50 mg PO DAILY Qty: 90 4RF lisinopril 40 mg tablet 40 mg PO DAILY Qty: 90 4RF clonazepam 1 mg tablet See Rx Instructions PO .COMPLEX Qty: 30 0RF Rx Instructions: 1tab PO two or three times a day; calcium carbonate [Tums E-X] 300 MG tablet,chewable 302 tab PO PRN PRN0RF Discharge Instructions Instructions: Levofloxacin (By mouth), How to Stop Smoking (DC), Type 2 Diabetes in Adults: New Diagnosis (DC), Diabetes and Nutrition (DC), Diabetes and Exercise (DC) Additional Instructions: Return to the hospital with any fever, bleeding, chest pain, or shortness of breath. Finish your antibiotics as prescribed. You must stop smoking. Do not take opioid medications/recreational substances - they interact with your medications. Check your blood sugars every morning first thing in the morning before drinking or eating and keep a log of them. Bring this log to your PCP and to your clinical staff educator. Please follow-up with the clinical trial educator at [facility] on June 19. Please call [facility] and ask for the clinical trial educator if you need to make any changes. Referrals: Kassandra Gary [MUSIC THERAPIST] - Selma Zimmerman NP [Primary Care Provider] - Activity:: Activity as Tolerated Equipment/Supplies:: No Equipment Needed Diet:: Carb Counting Discharge Orders Discharge Orders: Discharge Order (Routine); Ordered 06/12/21 Ordered By: Cris Valadez Discharge Data Discharge Date/Time-TO BE ENTERED AT DEPARTURE: 06/12/21 11:25 DS: Summary Time Spent with Patient providing and/or coordinating discharge services: Greater than 30 minutes Status at Discharge Functional status at discharge: independent ambulation Overall status at discharge: patient is back to baseline Mental Status: mental status grossly normal Speech and Movement: speech and movement normal Mood: congruent mood Affect: normal affect Exam Narrative Exam Narrative: General: Pleasant cooperative middle-aged male, A&Ox3, NAD, on room air HEENT: EOMI, MMM Heart: RRR, no m/r/g Lungs: CTAB Abdomen: soft, nontender, nondistended Extremities: no edema BLE's Psych Mental Status: mental status grossly normal Speech and Movement: speech and movement normal Mood: congruent mood Affect: normal affect DS: Data Vitals/I&O Vitals and I&O: Vital Signs Temperature 36.3 C L 06/12/21 07:35 Temperature Source Temporal Artery Scan 06/12/21 07:35 Pulse 78 06/12/21 07:00 Pulse 97 H 06/12/21 08:50 Respiratory Rate 17 06/12/21 08:40 Respiratory Effort Non-Labored 06/12/21 07:35 Respiratory Depth Normal 06/12/21 07:35 Respiratory Pattern Normal 06/12/21 07:35 Blood Pressure 104/51 L 06/12/21 07:00 Blood Pressure Mean 65 06/12/21 07:00 Blood Pressure Position Supine 06/12/21 03:40 Pulse Oximetry 96 06/12/21 07:50 Respiratory End-tidal CO2 12 06/12/21 02:10 Oxygen Delivery Method Room Air 06/12/21 07:35 Oxygen Flow Rate 0 06/12/21 07:35 Fraction of Inspired Oxygen (FIO2) 40 06/12/21 07:50 Pain Level 0 06/12/21 10:37 Intake & Output 03/06/11/21 06/12/21 11:59 23:59 11:59 Intake Total 1999 2782.5 / 2782.5 Output Total 1200 / 1200 Balance 1999 1582.5 / 1582.5 Weight 118.9 kg 118.9 kg Intake: IV 1999 2782.5 / 2782.5 Output: Urine 1200 / 1200 Other: Urine Color Dark Pamela Urine Appearance Clear Urine Odor Normal Comment No urine to asses at this time Voiding Methods Urinal Data Completed and Pending Completed studies during hospitalization [Text1]: CXR: Bilateral lung base infiltrates.? No obvious pleural effusions evident on this single portable view.Recommend nonportable PA and lateral views when clinically possible. Labs on day of discharge: Labs from last 24 hours 06/12/21 06/12/21 06/12/21 06:40 06:40 06:40 WBC RBC Hgb Hct MCV MCH MCHC RDW Plt Count MPV Immature Gran % Neutrophils % Lymphocytes % Atypical Lymphs % Monocytes % Eosinophils % Basophils % Nucleated RBC % Absolute Neutrophils Absolute Lymphocytes Absolute Monocytes Absolute Eosinophils Absolute Basophils RBC Morphology ABG Sample Site ABG pH ABG pCO2 ABG pO2 ABG HCO3 ABG Total CO2 ABG O2 Saturation ABG Base Excess VBG pH VBG pCO2 VBG pO2 VBG HCO3 VBG Total CO2 VBG O2 Saturation VBG Base Excess VBG Lactate FiO2 Sodium Potassium Chloride Carbon Dioxide Anion Gap BUN Creatinine Estimated GFR/1.73 m2 Glucose Hemoglobin A1c 6.7 H Calcium Magnesium Total Bilirubin AST ALT Alkaline Phosphatase Creatine Kinase 393 H Troponin I C-Reactive Protein Total Protein Albumin Lipase Procalcitonin Urine Color Urine Clarity Urine pH Ur Specific Horton Urine Protein Urine Ketones Urine Blood Urine Nitrite Urine Bilirubin Urine Urobilinogen Ur Leukocyte Esterase Urine Glucose Salicylates Urine Opiates Screen Urine Methadone Screen Acetaminophen Ur Barbiturates Screen Ur Tricyclics Screen Ur Amphetamines Screen U Benzodiazepines Scrn Urine Cocaine Screen Ur THC Screen Ethyl Alcohol COVID-19 Source SARS-CoV-2 (PCR) Add-On Test Request DONE 06/12/21 06/12/21 06/12/21 06:40 06:40 06:40 WBC RBC Hgb Hct MCV MCH MCHC RDW Plt Count MPV Immature Gran % Neutrophils % Lymphocytes % Atypical Lymphs % Monocytes % Eosinophils % Basophils % Nucleated RBC % Absolute Neutrophils Absolute Lymphocytes Absolute Monocytes Absolute Eosinophils Absolute Basophils RBC Morphology ABG Sample Site ABG pH ABG pCO2 ABG pO2 ABG HCO3 ABG Total CO2 ABG O2 Saturation ABG Base Excess VBG pH 7.33 VBG pCO2 53 H VBG pO2 52 VBG HCO3 28 VBG Total CO2 25 VBG O2 Saturation 88 VBG Base Excess 2 VBG Lactate 2.2 H* FiO2 Sodium Potassium Chloride Carbon Dioxide Anion Gap BUN Creatinine Estimated GFR/1.73 m2 Glucose Hemoglobin A1c Calcium Magnesium Total Bilirubin AST ALT Alkaline Phosphatase Creatine Kinase Troponin I C-Reactive Protein 0.83 H Total Protein Albumin Lipase Procalcitonin Urine Color Urine Clarity Urine pH Ur Specific [place] Urine Protein Urine Ketones Urine Blood Urine Nitrite Urine Bilirubin Urine Urobilinogen Ur Leukocyte Esterase Urine Glucose Salicylates Urine Opiates Screen Urine Methadone Screen Acetaminophen Ur Barbiturates Screen Ur Tricyclics Screen Ur Amphetamines Screen U Benzodiazepines Scrn Urine Cocaine Screen Ur THC Screen Ethyl Alcohol COVID-19 Source SARS-CoV-2 (PCR) Add-On Test Request 06/12/21 06/12/21 06/12/21 06:40 06:40 06:30 WBC 15.21 H RBC 4.28 L Hgb 12.9 L D Hct 40.3 MCV 94.2 MCH 30.1 MCHC 32.0 RDW 13.1 Plt Count 205 D MPV 8.7 Immature Gran % 1.1 Neutrophils % 84.3 Lymphocytes % 9.4 Atypical Lymphs % Monocytes % 5.0 Eosinophils % 0.1 Basophils % 0.1 Nucleated RBC % 0 Absolute Neutrophils 12.82 H Absolute Lymphocytes 1.43 Absolute Monocytes 0.76 Absolute Eosinophils 0.02 Absolute Basophils 0.02 RBC Morphology ABG Sample Site ABG pH ABG pCO2 ABG pO2 ABG HCO3 ABG Total CO2 ABG O2 Saturation ABG Base Excess VBG pH VBG pCO2 VBG pO2 VBG HCO3 VBG Total CO2 VBG O2 Saturation VBG Base Excess VBG Lactate FiO2 Sodium 141 Potassium 4.1 Chloride 103 Carbon Dioxide 27.0 Anion Gap 11.0 BUN 14 Creatinine 1.2 Estimated GFR/1.73 m2 >= 60.00 Glucose 119 H Hemoglobin A1c Calcium 7.6 L Magnesium Total Bilirubin 0.2 AST 28 ALT 42 Alkaline Phosphatase 43 L Creatine Kinase Troponin I C-Reactive Protein Total Protein 6.4 Albumin 3.2 L Lipase Procalcitonin Urine Color Urine Clarity Urine pH Ur Specific Horton Urine Protein Urine Ketones Urine Blood Urine Nitrite Urine Bilirubin Urine Urobilinogen Ur Leukocyte Esterase Urine Glucose Salicylates Urine Opiates Screen Negative Urine Methadone Screen Negative Acetaminophen Ur Barbiturates Screen Negative Ur Tricyclics Screen Negative Ur Amphetamines Screen Negative U Benzodiazepines Scrn Negative Urine Cocaine Screen Negative Ur THC Screen Negative Ethyl Alcohol COVID-19 Source SARS-CoV-2 (PCR) Add-On Test Request 06/12/21 06/11/21 06/11/21 06:30 23:56 23:56 WBC RBC Hgb Hct MCV MCH MCHC RDW Plt Count MPV Immature Gran % Neutrophils % Lymphocytes % Atypical Lymphs % Monocytes % Eosinophils % Basophils % Nucleated RBC % Absolute Neutrophils Absolute Lymphocytes Absolute Monocytes Absolute Eosinophils Absolute Basophils RBC Morphology ABG Sample Site ABG pH ABG pCO2 ABG pO2 ABG HCO3 ABG Total CO2 ABG O2 Saturation ABG Base Excess VBG pH 7.22 L VBG pCO2 62 H* VBG pO2 52 VBG HCO3 25 VBG Total CO2 23 L VBG O2 Saturation 83 VBG Base Excess -3 L VBG Lactate 3.8 H* FiO2 Sodium Potassium Chloride Carbon Dioxide Anion Gap BUN Creatinine Estimated GFR/1.73 m2 Glucose Hemoglobin A1c Calcium Magnesium Total Bilirubin AST ALT Alkaline Phosphatase Creatine Kinase Troponin I C-Reactive Protein Total Protein Albumin Lipase Procalcitonin Urine Color Yellow Urine Clarity Clear Urine pH 5.5 Ur Specific Horton 1.020 Urine Protein Negative Urine Ketones Negative Urine Blood Negative Urine Nitrite Negative Urine Bilirubin Negative Urine Urobilinogen 0.2 Ur Leukocyte Esterase Negative Urine Glucose Negative Salicylates Urine Opiates Screen Urine Methadone Screen Acetaminophen Ur Barbiturates Screen Ur Tricyclics Screen Ur Amphetamines Screen U Benzodiazepines Scrn Urine Cocaine Screen Ur THC Screen Ethyl Alcohol COVID-19 Source SARS-CoV-2 (PCR) Add-On Test Request 06/11/21 06/11/21 06/11/21 23:56 23:56 23:56 WBC RBC Hgb Hct MCV MCH MCHC RDW Plt Count MPV Immature Gran % Neutrophils % Lymphocytes % Atypical Lymphs % Monocytes % Eosinophils % Basophils % Nucleated RBC % Absolute Neutrophils Absolute Lymphocytes Absolute Monocytes Absolute Eosinophils Absolute Basophils RBC Morphology ABG Sample Site ABG pH ABG pCO2 ABG pO2 ABG HCO3 ABG Total CO2 ABG O2 Saturation ABG Base Excess VBG pH VBG pCO2 VBG pO2 VBG HCO3 VBG Total CO2 VBG O2 Saturation VBG Base Excess VBG Lactate FiO2 Sodium 140 Potassium 4.0 Chloride 104 Carbon Dioxide 26.8 Anion Gap 9.2 BUN 14 Creatinine 1.2 Estimated GFR/1.73 m2 >= 60.00 Glucose 143 H D Hemoglobin A1c Calcium 7.6 L Magnesium Total Bilirubin AST ALT Alkaline Phosphatase Creatine Kinase Troponin I < 50 C-Reactive Protein Total Protein Albumin Lipase Procalcitonin 0.2 Urine Color Urine Clarity Urine pH Ur Specific [place] Urine Protein Urine Ketones Urine Blood Urine Nitrite Urine Bilirubin Urine Urobilinogen Ur Leukocyte Esterase Urine Glucose Salicylates Urine Opiates Screen Urine Methadone Screen Acetaminophen Ur Barbiturates Screen Ur Tricyclics Screen Ur Amphetamines Screen U Benzodiazepines Scrn Urine Cocaine Screen Ur THC Screen Ethyl Alcohol COVID-19 Source SARS-CoV-2 (PCR) Add-On Test Request 06/11/21 06/11/21 06/11/21 23:36 20:51 20:50 WBC 21.35 H RBC 5.16 Hgb 15.7 Hct 48.1 MCV 93.2 MCH 30.4 MCHC 32.6 RDW 13.0 Plt Count 387 MPV 9.0 Immature Gran % 0.0 Neutrophils % 70.0 Lymphocytes % 24.0 Atypical Lymphs % 3 Monocytes % 2.0 Eosinophils % 1.0 Basophils % 0.0 Nucleated RBC % 0 Absolute Neutrophils 14.95 H Absolute Lymphocytes 5.76 H Absolute Monocytes 0.43 Absolute Eosinophils 0.21 Absolute Basophils 0.00 RBC Morphology Normal ABG Sample Site Right Radial ABG pH 7.18 L* ABG pCO2 65 H* ABG pO2 127 H ABG HCO3 24 ABG Total CO2 22 L ABG O2 Saturation 98 ABG Base Excess -4 L VBG pH VBG pCO2 VBG pO2 VBG HCO3 VBG Total CO2 VBG O2 Saturation VBG Base Excess VBG Lactate FiO2 100 Sodium Potassium Chloride Carbon Dioxide Anion Gap BUN Creatinine Estimated GFR/1.73 m2 Glucose Hemoglobin A1c Calcium Magnesium Total Bilirubin AST ALT Alkaline Phosphatase Creatine Kinase Troponin I C-Reactive Protein Total Protein Albumin Lipase Procalcitonin Urine Color Urine Clarity Urine pH Ur Specific [place] Urine Protein Urine Ketones Urine Blood Urine Nitrite Urine Bilirubin Urine Urobilinogen Ur Leukocyte Esterase Urine Glucose Salicylates Urine Opiates Screen Urine Methadone Screen Acetaminophen Ur Barbiturates Screen Ur Tricyclics Screen Ur Amphetamines Screen U Benzodiazepines Scrn Urine Cocaine Screen Ur THC Screen Ethyl Alcohol COVID-19 Source Nasal/Nares SARS-CoV-2 (PCR) Negative Add-On Test Request 06/11/21 06/11/21 20:50 20:50 WBC RBC Hgb Hct MCV MCH MCHC RDW Plt Count MPV Immature Gran % Neutrophils % Lymphocytes % Atypical Lymphs % Monocytes % Eosinophils % Basophils % Nucleated RBC % Absolute Neutrophils Absolute Lymphocytes Absolute Monocytes Absolute Eosinophils Absolute Basophils RBC Morphology ABG Sample Site ABG pH ABG pCO2 ABG pO2 ABG HCO3 ABG Total CO2 ABG O2 Saturation ABG Base Excess VBG pH VBG pCO2 VBG pO2 VBG HCO3 VBG Total CO2 VBG O2 Saturation VBG Base Excess VBG Lactate FiO2 Sodium 138 Potassium 3.5 Chloride 97 L Carbon Dioxide 26.3 Anion Gap 14.7 H BUN 14 Creatinine 1.4 H Estimated GFR/1.73 m2 52.81 Glucose 299 H Hemoglobin A1c Calcium 8.9 Magnesium 2.0 Total Bilirubin 0.2 AST 43 H ALT 55 Alkaline Phosphatase 62 Creatine Kinase Troponin I < 50 C-Reactive Protein Total Protein 8.0 Albumin 4.0 Lipase 126 Procalcitonin Urine Color Urine Clarity Urine pH Ur Specific [place] Urine Protein Urine Ketones Urine Blood Urine Nitrite Urine Bilirubin Urine Urobilinogen Ur Leukocyte Esterase Urine Glucose Salicylates 3.1 Urine Opiates Screen Urine Methadone Screen Acetaminophen < 2 Ur Barbiturates Screen Ur Tricyclics Screen Ur Amphetamines Screen U Benzodiazepines Scrn Urine Cocaine Screen Ur THC Screen Ethyl Alcohol 96.5 H COVID-19 Source SARS-CoV-2 (PCR) Add-On Test Request 06/11/21 00:23 Blood Blood Culture - Pending 06/11/21 00:00 Blood Blood Culture - Pending Preliminary micro results at discharge 06/11/21 00:23 Blood Culture - Pending Blood 06/11/21 00:00 Blood Culture - Pending Blood PFSH All Active Problems (Updated 06/12/21 @ 11:07 by Cris Valadez MD) Newly diagnosed diabetes (Acute) At risk for stress ulcer (Acute) DVT prophylaxis (Acute) Aspiration pneumonia (Acute) Acute respiratory failure (Acute) Overdose (Acute) Smoker (Chronic) 1 PPD on & off > 30 years Schizophrenia in full remission with history of multiple episodes (Chronic 04/26/15) Primary osteoarthritis of right shoulder (Chronic 11/22/15) Surg with Dr. 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 Medical History Chronic pain syndrome Partial tear of left rotator cuff (12/24/16) 2017 (approx per pt) repaired Superior glenoid labrum lesion of left shoulder, subsequent encounter (06/01/17) 2018 repair Family History Father , AGE 67 Diabetes Alcohol abuse Essential hypertension Depression Hypercholesteremia Schizophrenia Skin cancer Mother Depression Sister No problems noted. Brother Essential hypertension Son No problems noted. Son No problems noted. Social History Smoking/Tobacco Use Status: Current every day Tobacco Type: cigarettes Quit status: has quit before Second Hand Exposure: Yes Smoking risk assessment performed?: Yes Alcohol Intake: current Alcohol Intake frequency: a few times a month Drug use: Never Substance use type: does not use Caregiver/Support person: No Household members: significant other Housing: apartment Communication Needs: None Do you need help understanding health information?: Rarely current occupation: [employer] Pets and animals: No Sexually active: Yes Do you think of yourself as: straight/heterosexual Current gender identity: male What is your relationship status?: living with partner How often do you talk on the phone with friends or family?: twice per week How often do you get together with friends or relatives?: twice per week Do you belong to any clubs or organized social groups?: no Panel score (0-1 are the most socially isolated patients): 2 What type of physical activity do you participate in: bicycling Duration: < 15 minutes/day Frequency: 1-2 times per week Kimberly/Alevism: No preference Special kimberly needs: No Seatbelt use: sometimes Helmet use: Yes Helmet use: sometimes Drive intox or ride w/intox hyster driver: No Do you feel safe in your relationship?: Yes
[2021-06-13 11:54] LABS: pCO2 65 mmHg (35-45)
== END 2021-06-12 11:25 | disposition home or self-care (01) | DRG 917 ==
LOC: ER 06-12 00:17 → ICU 06-12 00:20
PROVIDERS: Internal Medicine; Admitting Provider Internal Medicine; Emergency Provider Physician Assistant; PCP Nurse Practitioner; Visit Provider Internal Medicine
DX: T40.2X1A Poisoning by other opioids, accidental (unintentional), initial encounter (principal); J96.01 Acute respiratory failure with hypoxia; J96.02 Acute respiratory failure with hypercapnia; J69.0 Pneumonitis due to inhalation of food and vomit; E87.2 Acidosis; F20.5 Residual schizophrenia; R41.82 Altered mental status, unspecified; F17.210 Nicotine dependence, cigarettes, uncomplicated; F32.9 Major depressive disorder, single episode, unspecified; E78.5 Hyperlipidemia, unspecified; I10 Essential (primary) hypertension; G89.29 Other chronic pain; M54.50 Low back pain, unspecified; M19.012 Primary osteoarthritis, left shoulder; M19.011 Primary osteoarthritis, right shoulder; M47.812 Spondylosis without myelopathy or radiculopathy, cervical region; E11.9 Type 2 diabetes mellitus without complications
CPT/HCPCS: 36415; 36416; 80048; 80053; 80307; 82550; 82805; 82962; 83690; 84145; 87040; 87635; 96361; 96365; 96372; 96375; 99291; 99292; 71045; 80320; 80329; 81003; 83036; 83605; 83735; 84484; 85025; 86140; 99239; J0696; J1630; J1956; J2060; J2310

== ENCOUNTER 2022-04-07 15:27 | Outpatient (REF) | payer MEDICAID, SELFPAY ==
[2022-04-07 21:06] LABS: HCT 52.1 % (40.0-50.0); HGB 17.4 g/dL (13.5-17.5); MCH 30.5 pg (27.0-33.0); MCHC 33.4 % (32.0-36.0); MCV 91 fL (80-95); MPV 9.5 fL (8.0-11.0); Platelet Count 311 10^3/uL (130-400); RDW 12.6 % (11.8-14.1); RDW-SD 42.4 fL; WBC 10.89 10^3/uL (4.4-10.8)
[2022-04-07 21:26] LABS: ALT 27 U/L (16-63); AST 17 U/L (15-37); Albumin 4.1 g/dL (3.4-5.0); Alkaline Phosphatase 64 U/L (46-116); Anion Gap 7.8 mmol/L (3-11); BUN 23 mg/dL (7-18); Bilirubin, Total 0.2 mg/dL (0.2-1.0); CO2 33.2 mmol/L (21.0-32.0); CREATININE 1.3 mg/dL (0.70-1.30); Calcium 9.7 mg/dL (8.5-10.1); Chloride 98 mmol/L (98-107); Cholesterol 295 mg/dL (<200); Estimated GFR 64.88 (mL/min/1.73m2); Glucose 200 mg/dL (74-106); HDL Cholesterol 38 mg/dL (40-60); Sodium 139 mmol/L (136-145); Total Protein 8.1 g/dL (6.4-8.2); Triglyceride 428 mg/dL (<150)
[2022-04-07 21:43] LABS: LDL CHOLESTEROL 200 mg/dL (<100)
[2022-04-08 19:14] LABS: Estimated Average Glucose 160 mg/dL; Hemoglobin A1C 7.2 % (<5.7)
== END 2022-04-07 15:28 | disposition home or self-care (01) ==
LOC: LBN 15:27
PROVIDERS: PCP Nurse Practitioner Family; Visit Provider Nurse Practitioner Family
DX: I10 Essential (primary) hypertension (principal); E78.5 Hyperlipidemia, unspecified; E11.9 Type 2 diabetes mellitus without complications; F17.210 Nicotine dependence, cigarettes, uncomplicated
CPT/HCPCS: 80053; 80061; 83721; 85027; 83036

== ENCOUNTER 2022-06-30 21:01 | Outpatient (REF) | payer MEDICAID, SELFPAY ==
[2022-06-30 21:18] LABS: Hemoglobin A1C 6.6 % (<5.7)
== END 2022-06-30 21:02 | disposition home or self-care (01) ==
LOC: LBN 21:01
PROVIDERS: PCP Nurse Practitioner Family; Visit Provider Nurse Practitioner Family
DX: E11.9 Type 2 diabetes mellitus without complications (principal)
CPT/HCPCS: 83036

== ENCOUNTER 2022-08-07 10:38 | Outpatient (REF) | payer MEDICAID, SELFPAY | END 2022-08-07 10:39 | disposition home or self-care (01) | LOC: LBN 10:38 | PROVIDERS: PCP Nurse Practitioner Family; Visit Provider Nurse Practitioner Family | DX: L98.8 Other specified disorders of the skin and subcutaneous tissue; L02.213 Cutaneous abscess of chest wall | CPT/HCPCS: 87077; 87070; 87186; 87205 ==

== ENCOUNTER 2023-04-24 02:33 | Outpatient (CLI) | payer MEDICAID, SELFPAY ==
[2023-04-24 12:25] LABS: HCT 51.9 % (40.0-50.0); HGB 16.9 g/dL (13.5-17.5); MCH 29.3 pg (27.0-33.0); MCHC 32.6 % (32.0-36.0); MCV 90 fL (80-95); MPV 9.1 fL (8.0-11.0); Platelet Count 278 10^3/uL (130-400); RBC 5.76 10^6/uL (4.36-5.78); RDW 13.9 % (11.8-14.1); RDW-SD 46.1 fL
[2023-04-24 12:44] LABS: ALT 44 U/L (16-63); AST 20 U/L (15-37); Albumin 4.1 g/dL (3.4-5.0); Alkaline Phosphatase 39 U/L (46-116); Anion Gap 7.5 mmol/L (3-11); BUN 22 mg/dL (7-18); Bilirubin, Total 0.5 mg/dL (0.2-1.0); CO2 28.5 mmol/L (21.0-32.0); CREATININE 1.1 mg/dL (0.70-1.30); Calcium 9.6 mg/dL (8.5-10.1); Calculated LDL 131 mg/dL (<100); Chloride 102 mmol/L (98-107); Cholesterol 212 mg/dL (<200); Estimated GFR 78.79 (mL/min/1.73m2); Glucose 146 mg/dL (74-106); HDL Cholesterol 45 mg/dL (40-60); Sodium 138 mmol/L (136-145); TSH (W/Ref FT4) 2.34 uIU/mL (0.36-3.74); Total Protein 7.9 g/dL (6.4-8.2); Triglyceride 184 mg/dL (<150)
[2023-04-24 12:49] LABS: Hemoglobin A1C 6.4 % (<5.7)
== END 2023-04-24 02:34 | disposition home or self-care (01) ==
LOC: LOS 02:33
PROVIDERS: PCP Nurse Practitioner Family; Visit Provider Nurse Practitioner Family
DX: E11.9 Type 2 diabetes mellitus without complications (principal); F17.210 Nicotine dependence, cigarettes, uncomplicated; I10 Essential (primary) hypertension; Z00.00 Encounter for general adult medical examination without abnormal findings
CPT/HCPCS: 36415; 80053; 80061; 85027; 83036; 84443

== ENCOUNTER 2024-02-15 10:27 | Outpatient (CLI) | payer MEDICAID, SELFPAY ==
[2024-02-15 12:13] LABS: Abs Immature Grans 0.12 10^3/uL (0.0-0.06); Absolute Basophil Count 0.06 10^3/uL (0.0-0.2); Absolute Eosinophil Count 0.17 10^3/uL (0.0-0.7); Absolute Lymphocyte Count 3.13 10^3/uL (1.2-3.4); Absolute Monocyte Count 0.96 10^3/uL (0.1-0.8); Basophils % 0.5 %; Eosinophils % 1.3 %; Immature Grans % 0.9 %; Lymphocytes % 24.2 %; MCH 30.2 pg (27.0-33.0); MCHC 33.2 % (32.0-36.0); MCV 91 fL (80-95); Monocytes % 7.4 %; Neutrophils % 65.7 %; Platelet Count 310 10^3/uL (130-400); RBC 6.32 10^6/uL (4.36-5.78); RDW 13.2 % (11.8-14.1); RDW-SD 44.2 fL; WBC 12.93 10^3/uL (4.4-10.8)
[2024-02-15 13:04] LABS: HCT 57.6 % (40.0-50.0); HGB 19.1 g/dL (13.5-17.5)
== END 2024-02-15 10:28 | disposition home or self-care (01) ==
LOC: LOS 10:27
PROVIDERS: PCP Nurse Practitioner Family; Referring Provider Nurse Practitioner Family; Visit Provider Nurse Practitioner Family
DX: Z77.120 Contact with and (suspected) exposure to mold (toxic) (principal)
CPT/HCPCS: 36415; 85025

== ENCOUNTER 2024-03-08 03:10 | Outpatient (CLI) | payer MEDICAID, SELFPAY ==
[2024-03-08 12:22] LABS: Abs Immature Grans 0.03 10^3/uL (0.0-0.06); Absolute Basophil Count 0.04 10^3/uL (0.0-0.2); Absolute Eosinophil Count 0.11 10^3/uL (0.0-0.7); Absolute Lymphocyte Count 2.08 10^3/uL (1.2-3.4); Absolute Monocyte Count 0.48 10^3/uL (0.1-0.8); Absolute Neutrophil Count 5.65 10^3/uL (1.2-6.7); Basophils % 0.5 %; Eosinophils % 1.3 %; HCT 51.6 % (40.0-50.0); HGB 17.3 g/dL (13.5-17.5); Immature Grans % 0.4 %; Lymphocytes % 24.8 %; MCH 30.5 pg (27.0-33.0); MCHC 33.5 % (32.0-36.0); MCV 91 fL (80-95); MPV 9.7 fL (8.0-11.0); Monocytes % 5.7 %; Neutrophils % 67.3 %; Platelet Count 262 10^3/uL (130-400); RBC 5.68 10^6/uL (4.36-5.78); RDW 13.1 % (11.8-14.1); RDW-SD 43.8 fL; WBC 8.39 10^3/uL (4.4-10.8)
[2024-03-08 12:38] LABS: ALT 34 U/L (16-63); AST 15 U/L (15-37); Albumin 4.1 g/dL (3.4-5.0); Alkaline Phosphatase 55 U/L (46-116); Anion Gap 6.2 mmol/L (3-11); BUN 19 mg/dL (7-18); Bilirubin, Total 0.34 mg/dL (0.2-1.0); CO2 28.8 mmol/L (21.0-32.0); CREATININE 1.1 mg/dL (0.70-1.30); Calcium 9.7 mg/dL (8.5-10.1); Chloride 101 mmol/L (98-107); Glucose 165 mg/dL (74-106); Potassium 3.9 mmol/L (3.5-5.1); Sodium 136 mmol/L (136-145); Total Protein 7.4 g/dL (6.4-8.2)
[2024-03-10 17:25] LABS: Erythropoietin 10.1 mIU/mL (2.6 - 18.5)
[2024-03-14 10:14] LABS: Result Summary NEGATIVE; Specimen WB Whole Blood
[2024-03-17 17:04] LABS: MPNR Result see interpretation
== END 2024-03-08 03:11 | disposition home or self-care (01) ==
LOC: LOS 03:10
PROVIDERS: PCP Nurse Practitioner Family; Visit Provider Nurse Practitioner Family
DX: D75.1 Secondary polycythemia (principal)
CPT/HCPCS: 36415; 80053; 81219; 81256; 81270; 81339; 82668; 85025

== ENCOUNTER 2025-01-21 15:52 | Emergency (ER) | payer MEDICAID, SELFPAY ==
[2025-01-21 15:55] VITALS: BP 217/87; PULSE 87; RESP 20; O2SAT 96
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
--- NOTE | 2025-01-21 16:15 | RT.EKG_ITS ---
APPROVED REPORT Exam: Resting ECG Reason for Exam: qTC montioring Patient Location: E HR:95 bpm ECG Measurements Heart Rate 95 AXIS TX 168 P 78 QRSd 101 QRS 68 QT 357 T 23 QTc 449 Conclusion Sinus rhythm...normal P axis, V-rate 60- 99 Probable left atrial enlargement...P >50mS, <-0.10mV V1 No STEMI
[2025-01-21 16:41] LABS: Abs Immature Grans 0.05 10^3/uL (0.0-0.06); HCT 50.6 % (40.0-50.0); HGB 17.2 g/dL (13.5-17.5); Immature Grans % 0.4 %; MCH 29.2 pg (27.0-33.0); MCHC 34.0 % (32.0-36.0); MCV 86 fL (80-95); MPV 8.6 fL (8.0-11.0); Platelet Count 293 10^3/uL (130-400); RBC 5.89 10^6/uL (4.36-5.78); RDW 12.9 % (11.8-14.1); RDW-SD 40.4 fL; WBC 14.00 10^3/uL (4.4-10.8)
[2025-01-21 16:59] LABS: Magnesium 1.6 mg/dL (1.8-2.4)
[2025-01-21 17:06] LABS: ALT 30 U/L (16-63); AST 16 U/L (15-37); Albumin 3.9 g/dL (3.4-5.0); Alkaline Phosphatase 56 U/L (46-116); Anion Gap 12.2 mmol/L (3-11); BUN 15 mg/dL (7-18); Bilirubin, Total 0.3 mg/dL (0.2-1.0); CO2 25.8 mmol/L (21.0-32.0); Calcium 9.1 mg/dL (8.5-10.1); Chloride 96 mmol/L (98-107); Glucose 318 mg/dL (74-106); Potassium 3.5 mmol/L (3.5-5.1); Sodium 134 mmol/L (136-145); Total Protein 7.5 g/dL (6.4-8.2); Troponin I 15 ng/L (<or=76)
[2025-01-21 17:10] LABS: Salicylate 3.2 mg/dL (<2.8)
[2025-01-21 17:12] LABS: Acetaminophen < 2 ug/mL (10-30)
[2025-01-21] MEDS: Droperidol 5 MG/2 ML VIAL 2.5 MG IVP (17:23)
--- NOTE | 2025-01-21 19:07 | NUR.NOTE ---
Nursing Note: Pt had IV placed, fluids connected patient walked around room and pulled out iv. pt is now unwilling to let this rn or others to place iv or perform any other care at this time
[2025-01-21] MEDS: Normal Saline 1,000 ML 1000 ML IV (19:10)
--- NOTE | 2025-01-21 19:12 | NUR.NOTE ---
EKG was ordered on day shift at 1620. Patient wasn't cooperating per my report do have EKG done therefore EKG wasn't done until 1901 when shift engineer staff came on.
[2025-01-21 19:54] LABS: Troponin I 24 ng/L (<or=76)
[2025-01-21 19:58] LABS: INR 1.5 (0.9-1.1); PTT Activated 34.7 sec (20.6-30.2); Prothrombin Time 14.3 sec (9.1-11.1)
[2025-01-21 20:46] VITALS: BP 147/79; PULSE 81; RESP 16; TEMP 37.1; O2SAT 99
[2025-01-21 20:53] LABS: Glucose Negative (Negative)
[2025-01-21 21:02] LABS: C & S Indicated? No; RBC Negative HPF (0-2)
[2025-01-21 21:10] LABS: Cannabinoids THC Positive (Negative)
--- NOTE | 2025-01-22 01:59 | ED.PROG_ITS ---
Date of service: 01/22/25 Time of Service: 02:02 Medical Decision Making This patient was obtained in signout from Dr. Nick Whelan at approximately 1 AM. The [facility] worker who attempted to evaluate the patient here in the emergency room was unsuccessful as the patient was unwilling to engage in discussing his case with her until the morning time. The plan will be for reevaluation by the behavioral health crisis service tomorrow morning. Quality:SDOH Health Related Social Needs: Health related social needs inadequate housing risk of homeless material hardship Discharge Plan Discharge Details Chief Complaint: PsychEval Primary Care Provider: Carlie Lemons ED Provider: Luis Gordon Home Meds and New Rx's Prescriptions: No Action escitalopram oxalate [Lexapro] 5 mg tablet 5 mg PO DAILY Qty: 90 1RF chlorthalidone 25 mg tablet 25 mg PO DAILY Qty: 90 3RF lisinopril 20 mg tablet 40 mg PO DAILY Qty: 180 3RF rosuvastatin 10 mg tablet 10 mg PO DAILY Qty: 90 4RF buspirone 5 mg tablet 5 mg PO BID Qty: 180 3RF
--- NOTE | 2025-01-22 07:10 | ED.PROG1_ITS ---
Date of service: 01/22/25 Time of Service: 07:10 Psychiatric Border Handoff Update Brief Story: Patient currently here awaiting crisis eval, currently resting with no new acute complaints. Will continue to monitor until evaluation is complete. Patient is currently calm and cooperative speaking clearly in no distress and has no complaints, he denies any SI or HI. Nursing advised the patient eloped prior to [facility] evaluating the patient. Given this morning's been calm and cooperative and denied any SI or HI do not feel he requires police involvement to be brought back. Discharge Plan Disposition Patient Disposition: Eloped Condition: Stable Discharge Details Clinical Impression: Hyperactive Primary Care Provider: Carlie Lemosn ED Provider: Kyle Nieves [place] Meds and New Rx's Prescriptions: No Action escitalopram oxalate [Lexapro] 5 mg tablet 5 mg PO DAILY Qty: 90 1RF chlorthalidone 25 mg tablet 25 mg PO DAILY Qty: 90 3RF lisinopril 20 mg tablet 40 mg PO DAILY Qty: 180 3RF rosuvastatin 10 mg tablet 10 mg PO DAILY Qty: 90 4RF buspirone 5 mg tablet 5 mg PO BID Qty: 180 3RF
== END 2025-01-22 09:50 | disposition left against medical advice (07) ==
PROVIDERS: General Practice; Emergency Provider Emergency Medicine; PCP Nurse Practitioner Family
DX: F90.9 Attention-deficit hyperactivity disorder, unspecified type (principal); I24.9 Acute ischemic heart disease, unspecified
CPT/HCPCS: 99284 ×2; 36415; 96374; 00123; 80053; 80307; 93005; 96361; 80320; 80329; 81003; 81015; 83605; 83735; 84484; 85025; 85610; 85730; 93010; J1790